=== PATIENT | male | born 1955 | race Caucasian/White ===

== ENCOUNTER → 2016-09-16 | Outpatient (CLI) | payer OTHER ==
[~2016-09-16] MED LIST: CELE400C PO; CEVI30CA PO; CITA10TA4 PO; LEVO175T2 PO; OMEP-110 PO; TAMS-11 PO
== END | disposition home or self-care (01) ==
LOC: RAD 13:38
PROVIDERS: ATTEND Otolaryngology
DX: M87.9 Osteonecrosis, unspecified (principal)
CPT/HCPCS: 70100

== ENCOUNTER 2017-01-09 02:11 | Emergency (ER) | payer OTHER ==
[~2017-01-09] VITALS: Ht 177.8 cm; Wt 70.4 kg
[2017-01-09 03:57] VITALS: BP 138/89
== END 2017-01-09 05:45 | disposition home or self-care (01) ==
LOC: ED 05:39
DX: R04.0 Epistaxis (principal); E03.9 Hypothyroidism, unspecified; Z90.49 Acquired absence of other specified parts of digestive tract
CPT/HCPCS: 99281

== ENCOUNTER 2017-01-10 00:42 | Inpatient (IN) | payer OTHER ==
[~2017-01-10] VITALS: Ht 182.9 cm; Wt 64.4 kg
[2017-01-10] MEDS ORDERED: SODIUM CHLORIDE 0.9% 1,000 ML IV ONE ×2 (00:58→02:50)
[2017-01-10] MEDS ORDERED: SODIUM CHLORIDE 0.9% 1,000ML IVBOLUS ONE (01:00)
[2017-01-10] MEDS ORDERED: SODIUM CHLORIDE FLUSH 10ML SYR IVF ONE (01:00)
[2017-01-10 01:11] LABS: HEMATOCRIT 36.7 % (39.2-51.8); HEMOGLOBIN 12.4 g/dL (13.7-18.0); WHITE BLOOD COUNT 8.9 x10^3/uL (3.4-10)
[2017-01-10] MEDS ORDERED: ACETAMINOPHEN 325 MG TABLET PO PRN (03:00)
[2017-01-10] MEDS ORDERED: ONDANSETRON 2MG/ML, 2ML IVPush PRN (03:00)
[2017-01-10] MEDS ORDERED: SODIUM CHLORIDE FLUSH 10ML SYR IVF PRN (03:00)
[2017-01-10] MEDS ORDERED: ZOLPIDEM 5MG TABLET PO PRN (03:00)
[2017-01-10] MEDS ORDERED: DOCUSATE 100 MG CAPSULE PO PRN (03:00)
[2017-01-10] MEDS ORDERED: POLYETHYLENE GLYCOL 17 GM PACKET PO PRN (03:00)
[2017-01-10] MEDS ORDERED: BISACODYL 10 MG SUPP PR PRN (03:00)
[2017-01-10] MEDS ORDERED: HYDROcodone/APAP 5/325 TABLET PO PRN (03:00)
[2017-01-10] MEDS ORDERED: FLUMAZENIL 0.1 MG/1 ML, 5ML ONE ×2 (08:06→16:28)
[2017-01-10] MEDS ORDERED: NALOXONE 1 MG/ML, 2ML ONE ×2 (08:06→16:27)
[2017-01-10] MEDS ORDERED: FENTANYL PF 100 MCG/2ML ONE ×2 (08:06→16:27)
[2017-01-10] MEDS ORDERED: MIDAZOLAM 1 MG/ML, 5ML ONE ×2 (08:06→16:27)
[2017-01-10] MEDS ORDERED: LIDOCAINE 2%, 20ML ONE ×2 (08:49→16:09)
[2017-01-10] MEDS ORDERED: OMNIPAQUE 350 MG/ML, 100ML BOTTLE ONE (08:50)
[2017-01-10] MEDS: SODIUM CHLORIDE 0.9% 1,000 ML IV SCH ×2 (11:15→21:05)
[2017-01-10] MEDS: LEVOTHYROXINE 175 MCG TABLET PO SCH (11:16)
[2017-01-10] MEDS ORDERED: TAMSULOSIN 0.4 MG CAP.ER.24H ONE (15:10)
[2017-01-10] MEDS: OMEPRAZOLE 20 MG CAPSULE.DR PO SCH (15:11)
[2017-01-10] MEDS: CITALOPRAM 10 MG TABLET PO SCH (15:11)
[2017-01-10] MEDS: TAMSULOSIN 0.4 MG CAP.ER.24H PO SCH (15:11)
[2017-01-10] MEDS: CEVIMELINE HCL HOMEMEDPO SCH ×3 (15:12→20:56)
[2017-01-10 15:21] LABS: HEMATOCRIT 28.1 % (39.2-51.8); HEMOGLOBIN 9.5 g/dL (13.7-18.0); WHITE BLOOD COUNT 8.1 x10^3/uL (3.4-10)
[2017-01-10] MEDS ORDERED: EPINEPHRINE 1 MG/ML, 1ML ONE (15:59)
[2017-01-10] MEDS ORDERED: NEO/BACI/POLY/HC OINT 15GM ONE (15:59)
[2017-01-10] MEDS ORDERED: THROMBIN 20,000 UNIT VIAL TP ONE (15:59)
[2017-01-10] MEDS ORDERED: EPINEPHRINE TOPICAL SOLN 1 MG/ML, 30ML ONE (16:00)
[2017-01-10] MEDS ORDERED: LIDOCAINE/PF 1%, 30ML ONE (16:00)
[2017-01-10] MEDS ORDERED: THROMBIN 5,000 UNIT VIAL TP ONE (16:00)
[2017-01-10 19:28] LABS: HEMATOCRIT 27.2 % (39.2-51.8); HEMOGLOBIN 9.2 g/dL (13.7-18.0)
[2017-01-10 21:10] VITALS: BP 125/70
[2017-01-11] MEDS: LEVOTHYROXINE 175 MCG TABLET PO SCH (06:00)
[2017-01-11 08:17] LABS: ASPARTATE AMINO TRANSFERASE 9 U/L (15-37); BLOOD UREA NITROGEN 24 mg/dL (7-18); HEMATOCRIT 25.5 % (39.2-51.8); HEMOGLOBIN 8.6 g/dL (13.7-18.0); WHITE BLOOD COUNT 10.4 x10^3/uL (3.4-10)
[2017-01-11] MEDS: CEVIMELINE HCL HOMEMEDPO SCH ×3 (09:00→20:43)
[2017-01-11] MEDS: OMEPRAZOLE 20 MG CAPSULE.DR PO SCH (09:51)
[2017-01-11] MEDS: TAMSULOSIN 0.4 MG CAP.ER.24H PO SCH (09:51)
[2017-01-11] MEDS: CITALOPRAM 10 MG TABLET PO SCH (09:51)
[2017-01-11] MEDS: SODIUM CHLORIDE 0.9% 1,000 ML IV SCH ×2 (12:05→16:34)
[2017-01-12] MEDS: SODIUM CHLORIDE 0.9% 1,000 ML IV SCH (03:43)
[2017-01-12 04:41] LABS: WHITE BLOOD COUNT 6.1 x10^3/uL (3.4-10)
[2017-01-12 04:51] LABS: HEMATOCRIT 19.2 % (39.2-51.8); HEMOGLOBIN 6.5 g/dL (13.7-18.0)
[2017-01-12 04:58] LABS: ASPARTATE AMINO TRANSFERASE 9 U/L (15-37); BLOOD UREA NITROGEN 16 mg/dL (7-18)
[2017-01-12] MEDS: LEVOTHYROXINE 175 MCG TABLET PO SCH (06:01)
[2017-01-12 06:41] VITALS: BP 116/46
[2017-01-12 07:09] VITALS: BP 135/66
[2017-01-12] MEDS: TAMSULOSIN 0.4 MG CAP.ER.24H PO SCH (08:59)
[2017-01-12] MEDS: OMEPRAZOLE 20 MG CAPSULE.DR PO SCH (08:59)
[2017-01-12] MEDS: CEVIMELINE HCL HOMEMEDPO SCH ×3 (08:59→20:36)
[2017-01-12] MEDS: CITALOPRAM 10 MG TABLET PO SCH (08:59)
[2017-01-12 09:35] VITALS: BP 123/63
[2017-01-12 11:51] LABS: HEMATOCRIT 22.5 % (39.2-51.8); HEMOGLOBIN 7.8 g/dL (13.7-18.0); WHITE BLOOD COUNT 6.6 x10^3/uL (3.4-10)
[2017-01-12 16:25] VITALS: BP 118/70
[2017-01-12 18:17] LABS: HEMOGLOBIN 7.7 g/dL (13.7-18.0)
[2017-01-12 18:20] LABS: HEMATOCRIT 22.3 % (39.2-51.8)
[2017-01-12 19:41] VITALS: BP 118/70
[2017-01-13] VITALS (13 sets, daily range): BP systolic 109–139; BP diastolic 62–78
[2017-01-13] MEDS: LEVOTHYROXINE 175 MCG TABLET PO SCH (05:07)
[2017-01-13 05:21] LABS: BLOOD UREA NITROGEN 11 mg/dL (7-18)
[2017-01-13 05:30] LABS: HEMOGLOBIN 7.4 g/dL (13.7-18.0); WHITE BLOOD COUNT 5.9 x10^3/uL (3.4-10)
[2017-01-13 05:34] LABS: ASPARTATE AMINO TRANSFERASE 10 U/L (15-37)
[2017-01-13 05:42] LABS: HEMATOCRIT 22.2 % (39.2-51.8)
[2017-01-13] MEDS: CITALOPRAM 10 MG TABLET PO SCH (08:24)
[2017-01-13] MEDS: OMEPRAZOLE 20 MG CAPSULE.DR PO SCH (08:24)
[2017-01-13] MEDS: TAMSULOSIN 0.4 MG CAP.ER.24H PO SCH (08:24)
[2017-01-13] MEDS: CEVIMELINE HCL HOMEMEDPO SCH ×3 (09:00→19:36)
[2017-01-14 00:59] VITALS: BP 138/77
[2017-01-14] MEDS: LEVOTHYROXINE 175 MCG TABLET PO SCH (04:19)
[2017-01-14 05:08] LABS: HEMATOCRIT 29.6 % (39.2-51.8)
[2017-01-14 08:50] VITALS: BP 125/76
[2017-01-14] MEDS: OMEPRAZOLE 20 MG CAPSULE.DR PO SCH (08:59)
[2017-01-14] MEDS: CITALOPRAM 10 MG TABLET PO SCH (08:59)
[2017-01-14] MEDS: TAMSULOSIN 0.4 MG CAP.ER.24H PO SCH (08:59)
[2017-01-14] MEDS: CEVIMELINE HCL HOMEMEDPO SCH ×3 (09:00→21:00)
[2017-01-14] MEDS ORDERED: POLYETHYLENE GLYCOL 17 GM PACKET PO PRN ×2 (15:30)
[2017-01-14] MEDS ORDERED: DOCUSATE 100 MG CAPSULE PO PRN ×2 (15:30)
[2017-01-14] MEDS ORDERED: ONDANSETRON 2MG/ML, 2ML IVPush PRN ×2 (15:30)
[2017-01-14] MEDS ORDERED: BISACODYL 10 MG SUPP PR PRN ×2 (15:30)
[2017-01-14 19:49] VITALS: BP 118/70
[2017-01-15 00:59] VITALS: BP 124/71
[2017-01-15] MEDS: LEVOTHYROXINE 175 MCG TABLET PO SCH (05:06)
[2017-01-15 05:28] LABS: HEMATOCRIT 26.5 % (39.2-51.8); HEMOGLOBIN 8.9 g/dL (13.7-18.0)
[2017-01-15 07:36] VITALS: BP 115/67
[2017-01-15] MEDS: CEVIMELINE HCL HOMEMEDPO SCH ×3 (08:37→19:09)
[2017-01-15] MEDS: TAMSULOSIN 0.4 MG CAP.ER.24H PO SCH (08:38)
[2017-01-15] MEDS: OMEPRAZOLE 20 MG CAPSULE.DR PO SCH (08:38)
[2017-01-15] MEDS: CITALOPRAM 10 MG TABLET PO SCH (08:38)
[2017-01-15 13:44] VITALS: BP 129/75
[2017-01-15 19:36] VITALS: BP 124/75
[2017-01-15] MEDS: AMOXICILLIN/CLAV 875-125MG TABLET PO SCH (20:37)
[2017-01-16 03:57] VITALS: BP 137/83
[2017-01-16 05:11] LABS: HEMATOCRIT 28.4 % (39.2-51.8); HEMOGLOBIN 9.6 g/dL (13.7-18.0)
[2017-01-16] MEDS: LEVOTHYROXINE 175 MCG TABLET PO SCH (06:21)
[2017-01-16 07:06] VITALS: BP 132/75
[2017-01-16] MEDS: AMOXICILLIN/CLAV 875-125MG TABLET PO SCH (08:02)
[2017-01-16] MEDS: TAMSULOSIN 0.4 MG CAP.ER.24H PO SCH (08:03)
[2017-01-16] MEDS: CITALOPRAM 10 MG TABLET PO SCH (08:03)
[2017-01-16] MEDS: OMEPRAZOLE 20 MG CAPSULE.DR PO SCH (08:03)
[2017-01-16] MEDS: CEVIMELINE HCL HOMEMEDPO SCH (08:03)
[2017-01-16] MEDS ORDERED: AMOX1TAB12 PO (10:20)
[2017-01-16] MEDS ORDERED: TRAM50TA2 PO (10:20)
[2017-01-16 10:38] VITALS: BP 118/65
== END 2017-01-16 11:49 | disposition home or self-care (01) | DRG 133 ==
LOC: ED 01:08 → SUATTDRO 02:30 → EDIP 02:50 → CCU 19:04 → 4NOR 01-12 16:12 → DCLOUNGE 01-16 11:40
PROVIDERS: ATTEND Hospitalist
PROC: 03L Upper Arteries, Occlusion (ICD-10-PCS; principal; 2017-01-10)
PROC: 03L Upper Arteries, Occlusion (ICD-10-PCS; 2017-01-10)
PROC: 03L Upper Arteries, Occlusion (ICD-10-PCS; 2017-01-10)
PROC: 03L Upper Arteries, Occlusion (ICD-10-PCS; 2017-01-10)
PROC: 30233N1 Transfusion of Nonautologous Red Blood Cells into Peripheral Vein, Percutaneous Approach (ICD-10-PCS; 2017-01-12)
DX: R04.0 Epistaxis (principal); E43 Unspecified severe protein-calorie malnutrition; D62 Acute posthemorrhagic anemia; M87.9 Osteonecrosis, unspecified; Z68.1 Body mass index [BMI] 19.9 or less, adult; E03.9 Hypothyroidism, unspecified; F32.9 Major depressive disorder, single episode, unspecified; G56.31 Lesion of radial nerve, right upper limb; K21.9 Gastro-esophageal reflux disease without esophagitis; N40.0 Benign prostatic hyperplasia without lower urinary tract symptoms; Z80.0 Family history of malignant neoplasm of digestive organs; Z85.810 Personal history of malignant neoplasm of tongue; Z92.3 Personal history of irradiation; Z92.21 Personal history of antineoplastic chemotherapy
CPT/HCPCS: 36415; 37244; 70487; 80053; 83735; 84443; 85014; 85018; 85025; 85027; 85610; 85730; 86850; 86900; 86923; 87081; 96360; 96361; 99156; 99157; C1894; J0171; J2250; J3010; J3490; Q9967; C1751; C1760; C1769; J2310; J7030; P9016

== ENCOUNTER → 2017-08-04 | Outpatient (CLI) | payer OTHER ==
[~2017-08-04] MED LIST changes: +AMOX1TAB12 PO; +CITA20TA5 PO; +GLUC1CAP18 PO; +MULT-658 PO; +OMEP20TA62 PO; +TRAM50TA2 PO
== END | disposition home or self-care (01) ==
LOC: STAR 14:07
DX: D12.6 Benign neoplasm of colon, unspecified (principal)
CPT/HCPCS: 93005

== ENCOUNTER 2017-08-10 10:25 | Day surgery (SDC) | payer OTHER ==
[~2017-08-10] VITALS: Ht 177.8 cm; Wt 71.1 kg
[2017-08-10] MEDS ORDERED: LACTATED RINGERS 1,000 ML IV SCH ×2 (10:43→10:56)
[2017-08-10 10:54] VITALS: BP 122/83
[2017-08-10] MEDS ORDERED: PROPOFOL 10 MG/ML, 20ML ONE (12:50)
[2017-08-10] MEDS ORDERED: LABETALOL 5MG/ML, 20ML IV PRN (14:00)
[2017-08-10] MEDS ORDERED: MEPERIDINE/PF 25MG/0.5ML IVPush PRN (14:00)
[2017-08-10] MEDS ORDERED: PROMETHAZINE 12.5 MG SUPP PR PRN (14:00)
[2017-08-10] MEDS ORDERED: ALBUTEROL SULFATE 2.5 MG/3 ML NPPB PRN (14:00)
[2017-08-10] MEDS ORDERED: OXYcodone 5 MG/5 ML ORAL.SOL UDC PO PRN (14:00)
[2017-08-10] MEDS ORDERED: ONDANSETRON 2MG/ML, 2ML IVPush PRN (14:00)
[2017-08-10] MEDS ORDERED: FENTANYL PF 100 MCG/2ML IV PRN (14:00)
[2017-08-10] MEDS ORDERED: morphine SULFATE 10 MG/ML, 1ML IV PRN (14:00)
[2017-08-10] MEDS ORDERED: hydrALAzine 20 MG/ML, 1ML IV PRN (14:00)
[2017-08-10] MEDS ORDERED: MIDAZOLAM 1 MG/ML, 2ML IV PRN (14:00)
== END 2017-08-10 15:35 ==
LOC: OUT 10:25
DX: D12.0 Benign neoplasm of cecum (principal); D12.8 Benign neoplasm of rectum; K31.7 Polyp of stomach and duodenum; D69.2 Other nonthrombocytopenic purpura; Z86.010 Personal history of colon polyps; Z98.0 Intestinal bypass and anastomosis status
CPT/HCPCS: 45385; 88305; J2704; J7120

== ENCOUNTER → 2018-02-15 | Outpatient (CLI) | payer OTHER ==
[~2018-02-15] MED LIST changes: -CITA20TA5 PO; +CITA20TA6 PO; +CITA40TA5 PO
== END | disposition home or self-care (01) ==
LOC: STAR 12:21
DX: Z01.818 Encounter for other preprocedural examination (principal); D69.2 Other nonthrombocytopenic purpura
CPT/HCPCS: 93005

== ENCOUNTER 2018-02-23 10:00 | Day surgery (SDC) | payer OTHER ==
[~2018-02-23] VITALS: Ht 177.8 cm; Wt 69.4 kg
[2018-02-23] MEDS ORDERED: LACTATED RINGERS 1,000 ML IV SCH (10:30)
[2018-02-23 10:46] VITALS: BP 125/84
[2018-02-23] MEDS ORDERED: OXYcodone 5 MG/5 ML ORAL.SOL UDC PO PRN (12:30)
[2018-02-23] MEDS ORDERED: ALBUTEROL SULFATE 2.5 MG/3 ML NPPB PRN (12:30)
[2018-02-23] MEDS ORDERED: hydrALAzine 20 MG/ML, 1ML IV PRN (12:30)
[2018-02-23] MEDS ORDERED: MIDAZOLAM 1 MG/ML, 2ML IV PRN (12:30)
[2018-02-23] MEDS ORDERED: MEPERIDINE/PF 25MG/0.5ML IVPush PRN (12:30)
[2018-02-23] MEDS ORDERED: FENTANYL PF 100 MCG/2ML IV PRN (12:30)
[2018-02-23] MEDS ORDERED: LABETALOL 5MG/ML, 20ML IV PRN (12:30)
[2018-02-23] MEDS ORDERED: PROPOFOL 10 MG/ML, 20ML ONE (12:45)
== END 2018-02-23 14:55 | disposition home or self-care (01) ==
LOC: OUT 10:00
DX: D12.5 Benign neoplasm of sigmoid colon (principal); D13.2 Benign neoplasm of duodenum; K31.7 Polyp of stomach and duodenum; K22.70 Barrett's esophagus without dysplasia; K62.1 Rectal polyp; D69.2 Other nonthrombocytopenic purpura; Z85.810 Personal history of malignant neoplasm of tongue; E03.9 Hypothyroidism, unspecified; Z90.49 Acquired absence of other specified parts of digestive tract; Z98.890 Other specified postprocedural states; Z79.899 Other long term (current) drug therapy
CPT/HCPCS: 44361; 44369; 45385; 88305; J2704; J7120

== ENCOUNTER 2019-03-20 08:10 | Day surgery (SDC) | payer OTHER ==
[~2019-03-20] VITALS: Ht 177.8 cm; Wt 68.0 kg
[2019-03-20] MEDS ORDERED: LACTATED RINGERS 1,000 ML IV SCH (08:55)
[2019-03-20 08:57] VITALS: BP 125/83
[2019-03-20] MEDS ORDERED: LIDOCAINE-MPF 1%, 2ML INFIL ONE (09:00)
[2019-03-20] MEDS ORDERED: PROPOFOL 10 MG/ML, 50ML ONE (10:46)
== END 2019-03-20 13:40 | disposition home or self-care (01) ==
LOC: OUT 08:10
DX: D12.7 Benign neoplasm of rectosigmoid junction (principal); K22.70 Barrett's esophagus without dysplasia; K31.7 Polyp of stomach and duodenum; D69.2 Other nonthrombocytopenic purpura; E03.9 Hypothyroidism, unspecified; F41.9 Anxiety disorder, unspecified; Z98.0 Intestinal bypass and anastomosis status; Z90.49 Acquired absence of other specified parts of digestive tract; Z86.010 Personal history of colon polyps
CPT/HCPCS: 44361; 45385; 88305; J2704; J7120

== ENCOUNTER → 2020-03-26 | Outpatient (CLI) | payer OTHER | END | disposition home or self-care (01) | LOC: STAR 14:31 | PROVIDERS: ATTEND Internal Medicine Geriatric Medicine | DX: Z01.812 Encounter for preprocedural laboratory examination (principal); Z20.828 Contact with and (suspected) exposure to other viral communicable diseases; K22.70 Barrett's esophagus without dysplasia; D69.2 Other nonthrombocytopenic purpura | CPT/HCPCS: 87635; 93005 ==

== ENCOUNTER 2020-03-31 05:54 | Day surgery (SDC) | payer OTHER ==
[~2020-03-31] VITALS: Ht 177.8 cm; Wt 73.0 kg
[2020-03-31 06:35] VITALS: BP 135/88
[2020-03-31] MEDS ORDERED: LACTATED RINGERS 1,000 ML IV SCH (07:00)
[2020-03-31] MEDS ORDERED: CHLORHEXIDINE 15 ML UDC MM ONE (07:00)
[2020-03-31] MEDS ORDERED: FENTANYL PF 100 MCG/2ML ONE (07:12)
[2020-03-31] MEDS ORDERED: MIDAZOLAM 1 MG/ML, 2ML ONE (07:12)
[2020-03-31] MEDS ORDERED: PROMETHAZINE 25 MG/ML, 1ML IVPush PRN (07:30)
[2020-03-31] MEDS ORDERED: ACETAMINOPHEN 325 MG TABLET PO PRN (07:30)
[2020-03-31] MEDS ORDERED: OXYcodone 5 MG/5 ML ORAL.SOL UDC PO PRN (07:30)
[2020-03-31] MEDS ORDERED: FENTANYL PF 100 MCG/2ML IV PRN (07:30)
[2020-03-31] MEDS ORDERED: PROPOFOL 10 MG/ML, 20ML ONE ×2 (07:34)
[2020-03-31] MEDS ORDERED: ONDANSETRON 2MG/ML, 2ML ONE (08:11)
== END 2020-03-31 10:35 | disposition home or self-care (01) ==
LOC: OR 05:54
PROVIDERS: ATTEND Internal Medicine Geriatric Medicine
DX: D12.5 Benign neoplasm of sigmoid colon (principal); D12.8 Benign neoplasm of rectum; K20.0 Eosinophilic esophagitis; K31.7 Polyp of stomach and duodenum; K22.70 Barrett's esophagus without dysplasia; K63.89 Other specified diseases of intestine; N40.0 Benign prostatic hyperplasia without lower urinary tract symptoms; Z79.899 Other long term (current) drug therapy; Z90.49 Acquired absence of other specified parts of digestive tract
CPT/HCPCS: 44361; 45381; 45385; 88305; J2405; J2704; J3010; J7120; J2250